=== PATIENT | female | born 1995 | race Caucasian/White ===

== ENCOUNTER 2022-03-04 15:54 | Inpatient (IN) | payer MEDICAID ==
[~2022-03-04] VITALS: Ht 304.8 cm; Wt 49.9 kg
[2022-03-04] MEDS ORDERED: SODIUM CHLORIDE 0.9% 1,000 ML IV ONE ×2 (16:30)
[2022-03-04] MEDS ORDERED: ONDANSETRON HCL 4MG/2ML INJ IV ONE (16:30)
[2022-03-04 16:48] LABS: BG BASE EXCESS -11.4 mmol/L (-2.0-2.0); BG CARBOXYHEMOGLOBIN 0.4 % (0.5-1.5); BG DEOXYHEMOGLOBIN 1.8 % (0.0-5.0); BG FRACTION INSPIRED OXYGEN 21; BG METHEMOGLOBIN 0.4 % (0.0-1.5); BG OXYGEN SATURATION 98.2 % (92.0-98.5); BG OXYHEMOGLOBIN 97.4 % (94.0-97.0); BG PCO2 21.8 mmHg (35.0-45.0); BG PH 7.357 (7.350-7.450); BG PO2 109.3 mmHg (75.0-100.0); BG SAMPLE SITE RIGHT BRACHIAL; BG TOTAL HEMOGLOBIN 13.1 g/dL (12.0-18.0); BG VENT MODE ROOM AIR
[2022-03-04 17:02] LABS: HEMATOCRIT. 40.5 % (36.0-48.0); HEMOGLOBIN. 13.3 g/dL (12.0-16.0); MEAN CORPUSCULAR HEMOGLOBIN 28.3 pg (28.0-32.0); MEAN CORPUSCULAR VOLUME 85.7 fL (81.0-99.0); MEAN PLATELET VOLUME 8.8 fl (7.4-10.4); PLATELET 439 x1000/uL (130-400); RED BLOOD CELL COUNT 4.72 mill/uL (4.2-5.4); RED CELL DISTRIBUTION WIDTH 13.2 % (11.6-14.6)
[2022-03-04 17:36] LABS: HCG SCREEN NEGATIVE
[2022-03-04 17:56] LABS: PLATELET ESTIMATE INCREASED
[2022-03-04 18:38] LABS: BETA HYDROXYBUTYRATE 8.4 mMol/L (0.0-0.3); PHOSPHORUS 2.9 mg/dL (2.5-4.9)
[2022-03-04] MEDS ORDERED: INSULIN REGULAR 100U/100ML PMX 100 ML IV SCH (19:30)
[2022-03-04] MEDS ORDERED: INSULIN REGULAR (HUMULIN R) 300UNITS/3ML VIAL IV NR (19:30)
[2022-03-04] MEDS: SODIUM CHL 0.45% + KCL 20MEQ/L 1,000 ML IV SCH (21:15)
[2022-03-04 21:26] LABS: PHOSPHORUS 1.5 mg/dL (2.5-4.9)
[2022-03-04] MEDS: INSULIN REGULAR 100U/100ML PMX 100 ML IV SCH (22:19)
[2022-03-05] VITALS (39 sets, daily range): BP systolic 72–162; BP diastolic 55–104
[2022-03-05 01:16] LABS: PHOSPHORUS 1.7 mg/dL (2.5-4.9)
[2022-03-05] MEDS: SODIUM CHL 0.45% + KCL 20MEQ/L 1,000 ML IV SCH (03:01)
[2022-03-05] MEDS: DEXT 5%/0.45% NACL 1000ML IV SCH ×3 (06:04→16:30)
[2022-03-05] MEDS ORDERED: CLONIDINE 0.1MG TABLET PO PRN (10:15)
[2022-03-05] MEDS ORDERED: ACETAMINOPHEN 325MG TABLET PO PRN (10:15)
[2022-03-05] MEDS ORDERED: IPRATROPIUM/ALBUTEROL 0.5-3(2.5)MG/3ML NEB HHN PRN (10:15)
[2022-03-05] MEDS ORDERED: DIPHENHYDRAMINE 50MG/ML VIAL IV PRN (10:15)
[2022-03-05] MEDS: INSULIN REGULAR 100U/100ML PMX 100 ML IV SCH (12:43)
[2022-03-05] MEDS: ONDANSETRON HCL 4MG/2ML INJ IV PRN ×2 (15:26→23:40)
[2022-03-05] MEDS ORDERED: INFLUENZA VACCINE 05/PF 0.5 ML SYRINGE IM ONE (18:30)
[2022-03-05] MEDS: BLOOD SUGAR DIAGNOSTIC STRIP TEST SCH ×2 (22:30→23:30)
[2022-03-05] MEDS ORDERED: INSULIN REGULAR 100U/100ML PMX 100 ML IV SCH (22:30)
[2022-03-05] MEDS ORDERED: DEXTROSE 50% WATER 50ML SYRINGE IV PRN ×2 (22:30)
[2022-03-05] MEDS: DEXT 5%/0.45% NACL KCL 20MEQ/L 1,000 ML IV SCH (23:41)
[2022-03-06] VITALS (26 sets, daily range): BP systolic 119–152; BP diastolic 44–107
[2022-03-06] MEDS: BLOOD SUGAR DIAGNOSTIC STRIP TEST SCH ×18 (00:30→21:30)
[2022-03-06 01:25] LABS: CHLORIDE 101 mEq/L (98-107)
[2022-03-06 03:24] LABS: CHLORIDE 103 mEq/L (98-107)
[2022-03-06 03:54] LABS: BASOPHILS % 0.1 % (0.0-2.0); EOSINOPHILS % 0.3 % (0.0-5.0); HEMATOCRIT. 31.8 % (36.0-48.0); LYMPHOCYTES % 20.7 % (20.0-50.0); MEAN CORPUSCULAR HEMOGLOBIN 28.1 pg (28.0-32.0); MEAN CORPUSCULAR VOLUME 81.4 fL (81.0-99.0); MEAN PLATELET VOLUME 8.1 fl (7.4-10.4); MONOCYTES % 7.3 % (2.0-8.0); NEUTROPHILS % 71.6 % (40.0-76.0); PLATELET 330 x1000/uL (130-400); RED CELL DISTRIBUTION WIDTH 13.2 % (11.6-14.6)
[2022-03-06] MEDS: DEXT 5%/0.45% NACL KCL 20MEQ/L 1,000 ML IV SCH ×2 (07:46→15:30)
[2022-03-06 13:03] LABS: CHLORIDE 102 mEq/L (98-107)
[2022-03-06 16:27] LABS: CHLORIDE 103 mEq/L (98-107)
[2022-03-06 21:12] LABS: CHLORIDE 101 mEq/L (98-107)
[2022-03-06] MEDS ORDERED: POTASSIUM CHLORIDE 20MEQ TABLET SR PO NR (23:00)
[2022-03-06] MEDS ORDERED: DEXTROSE 50% WATER 50ML SYRINGE IV PRN (23:00)
[2022-03-06] MEDS: INSULIN GLARGINE 100 UNITS/ML SUBCUT SCH (23:30)
[2022-03-07] VITALS (24 sets, daily range): BP systolic 111–153; BP diastolic 23–102
[2022-03-07 00:49] LABS: CHLORIDE 103 mEq/L (98-107)
[2022-03-07] MEDS: ONDANSETRON HCL 4MG/2ML INJ IV PRN (02:46)
[2022-03-07] MEDS: INSULIN LISPRO 100 UNITS/ML SUBCUT SCH ×6 (04:00→20:30)
[2022-03-07] MEDS: BLOOD SUGAR DIAGNOSTIC STRIP TEST SCH ×6 (04:00→20:00)
[2022-03-07 05:52] LABS: BASOPHILS % 0.1 % (0.0-2.0); EOSINOPHILS % 0.5 % (0.0-5.0); HEMATOCRIT. 31.7 % (36.0-48.0); HEMOGLOBIN. 10.9 g/dL (12.0-16.0); LYMPHOCYTES % 24.1 % (20.0-50.0); MEAN CORPUSCULAR HEMOGLOBIN 28.3 pg (28.0-32.0); MEAN CORPUSCULAR VOLUME 82.2 fL (81.0-99.0); MEAN PLATELET VOLUME 8.7 fl (7.4-10.4); MONOCYTES % 6.8 % (2.0-8.0); NEUTROPHILS % 68.5 % (40.0-76.0); PLATELET 295 x1000/uL (130-400); RED BLOOD CELL COUNT 3.86 mill/uL (4.2-5.4); RED CELL DISTRIBUTION WIDTH 12.8 % (11.6-14.6)
[2022-03-07 05:58] LABS: CHLORIDE 102 mEq/L (98-107)
[2022-03-07] MEDS: INSULIN GLARGINE 100 UNITS/ML SUBCUT SCH (22:19)
[2022-03-08] VITALS (16 sets, daily range): BP systolic 84–125; BP diastolic 47–90
[2022-03-08] MEDS: BLOOD SUGAR DIAGNOSTIC STRIP TEST SCH ×6 (04:00→20:00)
[2022-03-08] MEDS: INSULIN LISPRO 100 UNITS/ML SUBCUT SCH ×6 (04:00→22:32)
[2022-03-08 05:20] LABS: BASOPHILS % 0.2 % (0.0-2.0); EOSINOPHILS % 2.2 % (0.0-5.0); HEMATOCRIT. 29.6 % (36.0-48.0); HEMOGLOBIN. 10.2 g/dL (12.0-16.0); LYMPHOCYTES % 43.9 % (20.0-50.0); MEAN CORPUSCULAR HEMOGLOBIN 28.2 pg (28.0-32.0); MEAN CORPUSCULAR VOLUME 82.2 fL (81.0-99.0); MEAN PLATELET VOLUME 8.7 fl (7.4-10.4); MONOCYTES % 8.5 % (2.0-8.0); NEUTROPHILS % 45.2 % (40.0-76.0); PLATELET 289 x1000/uL (130-400); RED CELL DISTRIBUTION WIDTH 13.2 % (11.6-14.6)
[2022-03-08] MEDS: INSULIN GLARGINE 100 UNITS/ML SUBCUT SCH (22:00)
[2022-03-09] VITALS: BP 108/72
[2022-03-09] MEDS: BLOOD SUGAR DIAGNOSTIC STRIP TEST SCH ×3 (00:51→07:41)
[2022-03-09 04:00] VITALS: BP 115/78
[2022-03-09] MEDS: INSULIN LISPRO 100 UNITS/ML SUBCUT SCH ×3 (04:36→07:46)
[2022-03-09 08:07] VITALS: BP 116/68
[2022-03-09 08:44] VITALS: BP 116/68
[2022-03-09] MEDS ORDERED: INSULIN LISPRO 100 UNITS/ML SUBCUT NR (09:00)
== END 2022-03-09 09:15 | disposition home or self-care (01) | DRG 420 ==
LOC: ER 16:31 → MICUSO 20:57 → EDBEDREQ 21:03 → EDBEDREQTM 21:03 → CVICU 03-05 12:06 → 3WST 03-08 10:00
PROVIDERS: ADMIT Internal Medicine; ATTEND Internal Medicine
DX: E10.10 Type 1 diabetes mellitus with ketoacidosis without coma (principal); N17.9 Acute kidney failure, unspecified; E44.1 Mild protein-calorie malnutrition; Z20.822 Contact with and (suspected) exposure to COVID-19; E87.5 Hyperkalemia; Z79.4 Long term (current) use of insulin; Z90.49 Acquired absence of other specified parts of digestive tract
CPT/HCPCS: 36415; 36600; 80048; 80053; 80076; 82010; 82375; 82805; 82962; 83036; 83735; 84100; 84703; 85025; 87426; 90686; 93970; 99291; C1893; C9803; J1815; J2405; J3480; J7030